=== PATIENT | male | born 1960 | race Caucasian/White ===

== ENCOUNTER 2018-03-31 08:50 | Day surgery (SDC) | payer OTHER ==
[2018-03-31] MEDS ORDERED: PROPOFOL 500 MG/50 ML EMU IV ONE (09:23)
[2018-03-31] MEDS ORDERED: LIDOCAINE HCL 1% MPF 30 SOL ONE (09:23)
[2018-03-31 11:43] VITALS: RESP 20
[2018-03-31 11:49] VITALS: TEMP 96.9
[2018-03-31 12:09] VITALS: BP 118/69; PULSE 65; O2SAT 98
== END 2018-03-31 12:13 | disposition home or self-care (01) | DRG 951 ==
LOC: SURG 08:50
PROVIDERS: ATTEND Internal Medicine Gastroenterology
DX: Z12.11 Encounter for screening for malignant neoplasm of colon (principal); K92.1 Melena; Q39.9 Congenital malformation of esophagus, unspecified; R10.9 Unspecified abdominal pain; K44.9 Diaphragmatic hernia without obstruction or gangrene; L53.8 Other specified erythematous conditions; D12.7 Benign neoplasm of rectosigmoid junction; D12.3 Benign neoplasm of transverse colon; K64.8 Other hemorrhoids; D12.8 Benign neoplasm of rectum; K31.89 Other diseases of stomach and duodenum; R12 Heartburn; K28.9 Gastrojejunal ulcer, unspecified as acute or chronic, without hemorrhage or perforation; K29.70 Gastritis, unspecified, without bleeding
CPT/HCPCS: 99001; J2001; J2704